=== PATIENT | male | born 1960 | race Caucasian/White ===

== ENCOUNTER 2017-05-01 08:42 | Emergency (ER) | payer BC, OTHER ==
[2017-05-01 08:43] VITALS: BMI 26.6
[2017-05-01 08:46] VITALS: TEMP 97.9
--- NOTE | 2017-05-01 09:07 | C.PDOC ---
History Of Present Illness 56M c/o sore throat for 1 week. subjective fever not measured. mild cough. says he had same sx last year that resolved with an "injection" of antibiotics. Time Seen by Provider: 05/01/17 08:54 Chief Complaint (Nursing): ENT Problem Past Medical History Vital Signs: Last Vital Signs Temp 97.9 F 05/01/17 08:44 Pulse 74 05/01/17 08:44 Resp 20 05/01/17 08:44 BP 144/88 05/01/17 08:44 Pulse Ox 99 05/01/17 09:15 - Medical History PMH: HTN Denies: Chronic Kidney Disease - [facility] Procedures CLOSED ENDOSCOPIC BIOPSY OF LARGE INTESTINE (07/29/15) Family History: States: Other - Social History Hx Alcohol Use: No Hx Substance Use: No - Immunization History Hx Tetanus Toxoid Vaccination: No Hx Influenza Vaccination: Yes Hx Pneumococcal Vaccination: No Review Of Systems Constitutional: Negative for: Weakness, Malaise ENT: Negative for: Ear Pain Cardiovascular: Negative for: Chest Pain, Palpitations, Edema, Light Headedness Respiratory: Positive for: Cough. Negative for: Shortness of Breath, Hemoptysis , Wheezing Gastrointestinal: Negative for: Nausea, Vomiting, Abdominal Pain Musculoskeletal: Negative for: Neck Pain Neurological: Negative for: Weakness, Numbness, Headache Physical Exam - Physical Exam Appears: Well, Non-toxic, No Acute Distress Skin: Warm, Dry Head: Atraumatic Eye(s): bilateral: PERRL Nose: No Epistaxis Oral Mucosa: Moist Tongue: No Swelling, No Lesions Lips: No Swelling, No Lesions Throat: No Erythema, No Exudate, No Drooling, No Mass, Other (normal phonation. handling secretions well. no trismus. uvual midline.) Neck: Normal ROM, Supple Cardiovascular: Rhythm Regular Respiratory: No Decreased Breath Sounds, No Accessory Muscle Use, No Rales, No Rhonchi, No Stridor, No Wheezing Neurological/Psych: Oriented x3, Normal Motor, Normal Sensation, Other (no focal deficits) ED Course And Treatment O2 Sat by Pulse Oximetry: 99 Disposition - Disposition Referrals: Doe Rodriguez MD [IM] - Disposition: HOME/ ROUTINE Disposition Time: 10:07 Condition: GOOD Additional Instructions: Please follow up with your doctor. Return to the ER for any worsening symptoms or for any other concerns. Instructions: Pharyngitis (ED) Print Language: GREEK - Clinical Impression Clinical Impression: Pharyngitis
[2017-05-01] MEDS ORDERED: Dexamethasone 4 mg/1 ml ONE (09:31)
[2017-05-01 10:12] VITALS: BP 129/85; PULSE 62; RESP 17; O2SAT 100
== END 2017-05-01 10:30 | disposition home or self-care (01) ==
LOC: C.ER 08:42
DX: J02.9 Acute pharyngitis, unspecified (principal)
CPT/HCPCS: 87070; 87430; 94770; 96372; 99283; J1100; J1885